=== PATIENT | female | born 1985 | race Caucasian/White ===

== ENCOUNTER 2018-05-01 08:45 | Emergency (ER) | payer MEDICAID ==
[~2018-05-01] VITALS: Ht 162.6 cm; Wt 47.7 kg
[~2018-05-01 08:45] MED LIST: NAPR-1154 PO
[2018-05-01 11:35] LABS: BASOPHILS % (AUTO) 0.4 % (0-1); EOSINOPHILS # (AUTO) 0.1 X10'3 (0-0.9); EOSINOPHILS % (AUTO) 1.4 % (0-6); HEMATOCRIT 33.1 % (35.0-45.0); LYMPHOCYTES % (AUTO) 20.4 % (21-51); MEAN CORPUSCULAR HEMOGLOBIN 28.5 PG (27.0-31.0); MEAN CORPUSCULAR HGB CONC 33.2 g/dL (33.0-36.5); MEAN CORPUSCULAR VOLUME 86.1 FL (78-98); MEAN PLATELET VOLUME 9.4 FL (7.4-10.4); MONOCYTES # (AUTO) 0.5 X10'3 (0-0.9); MONOCYTES % (AUTO) 4.9 % (2-12); NEUTROPHILS # (AUTO) 7.2 X10'3 (1.8-7.7); NEUTROPHILS % (AUTO) 72.9 % (42-75); PLATELET COUNT 282 X10'3 (140-440); RED BLOOD COUNT 3.85 X10'6 (4.20-5.60); RED CELL DISTRIBUTION WIDTH 15.1 % (11.5-14.5); WHITE BLOOD COUNT 9.9 X10'3 (4.5-11.0)
[2018-05-01] MEDS ORDERED: normal saline 1000ML IV soln IVB ONE (12:40)
--- NOTE | 2018-05-01 15:30 | NUR ---
Patient given OB pads and new underwear with scrub pants due to soiling of pants prior to discharge.
[2018-05-01 15:31] VITALS: BP 108/45
== END 2018-05-01 15:34 | disposition home or self-care (01) ==
LOC: ER 08:46
DX: O20.0 Threatened abortion (principal); F17.200 Nicotine dependence, unspecified, uncomplicated; Z3A.08 8 weeks gestation of pregnancy
CPT/HCPCS: 36415; 76802; 84702; 85025; 86900; 86901; 99285; J7030

== ENCOUNTER 2018-05-04 12:41 | Emergency (ER) | payer MEDICAID ==
[~2018-05-04] VITALS: Ht 162.6 cm; Wt 47.1 kg
[2018-05-04 13:01] VITALS: BP 126/80
== END 2018-05-04 16:03 | disposition home or self-care (01) ==
LOC: ER 12:41
DX: N93.9 Abnormal uterine and vaginal bleeding, unspecified (principal); Z00.8 Encounter for other general examination; Z79.899 Other long term (current) drug therapy
CPT/HCPCS: 36415; 84702; 99283

== ENCOUNTER 2019-07-13 13:47 | Emergency (ER) | payer MEDICAID ==
[~2019-07-13] VITALS: Ht 162.6 cm; Wt 45.5 kg
[2019-07-13 13:52] VITALS: BP 111/75
[2019-07-13 15:24] LABS: URINE HCG POSITIVE (NEG)
== END 2019-07-13 15:41 | disposition home or self-care (01) ==
LOC: ER 13:48
DX: M54.5 Low back pain (principal); Z34.90 Encounter for supervision of normal pregnancy, unspecified, unspecified trimester; Z79.899 Other long term (current) drug therapy
CPT/HCPCS: 81025; 99283